=== PATIENT | male | born 1960 | race Caucasian/White ===

== ENCOUNTER 2020-07-26 09:40 | Outpatient (REF) | payer OTHER, SELFPAY | END 2020-07-26 09:41 | disposition home or self-care (01) | LOC: HO.LAB 09:40 | PROVIDERS: Visit Provider Internal Medicine | DX: Z20.828 Contact with and (suspected) exposure to other viral communicable diseases (principal) | CPT/HCPCS: 87635 ==

== ENCOUNTER 2024-05-08 22:57 | Emergency (ER) | payer BC, SELFPAY ==
[2024-05-08 23:04] VITALS: BP 160/72; PULSE 111; RESP 20; TEMP 37.1; O2SAT 99; BMI 26.6
--- NOTE | 2024-05-08 23:51 | ED.GENADULT ---
HPI - General Adult General Chief complaint: General Medical Stated complaint: Inflamed Prostate Time Seen by Provider: 05/08/24 23:51 History of Present Illness ED Provider: Rima PA narrative: The patient is a 63-year-old male who presents with acute pelvic or rectal pain that started this evening. He says that he had something like this a year ago and it was attributed to his prostate catheter at that time. He does not feel he can void on this occasion. No fever, sweats, chills. Related Data Previous Rx's ?Medication ?Instructions ?Recorded oxycodone 5 mg tablet 5 mg PO Q6H PRN pain #10 tabs 05/09/24 tamsulosin 0.4 mg capsule 0.4 mg PO BEDTIME #30 caps 05/09/24 Allergies Allergy/AdvReac Type Severity Reaction Status Date / Time No Known Allergies Allergy Verified 05/08/24 23:06 Review of Systems Review of Systems: Yes all other systems are reviewed and are negative [facility] Social History Social History Smoked in Last 30 Days: No Use of substances other than those prescribed or required for medical reasons: No Advance Directives: No Advance Directives Information Provided: Yes Do you have a plan to hurt others: No Plan Physical Exam ED Vital Signs: Vital Signs - 24 hr 05/08/24 23:04 05/09/24 02:50 05/09/24 03:35 Temperature 98.7 F 99.4 F 99.4 F Pulse Rate 111 H 110 H 98 Respiratory Rate 20 18 16 Blood Pressure 160/72 H 126/72 126/72 Pulse Oximetry 99 94 97 Oxygen Delivery Method Room Air Room Air Room Air BMI result Body Mass Index 26.6 Const Other: The patient is awake and alert, pleasant and cooperative. He looks quite uncomfortable. HENMT Other: Face is symmetrical, mucous membranes moist Eyes Other: Pupils are round equal, conjunctivae are clear Resp Effort & Inspection: normal respiratory effort Auscultation: clear to auscultation bilaterally Cardio Rate: regular rate Rhythm: regular rhythm Heart sounds: S1 normal heart sound present and S2 normal heart sound present GI Other: The abdomen is soft and nontender except in the suprapubic area where there is fullness and tenderness. Rectal exam showed normal rectal tone. There was no significant prostatic tenderness with digital examination. Skin Other: Skin is dry and unremarkable Neuro Other: The patient is awake and alert. He looks very uncomfortable. Face is symmetrical. Speech is clear. Moving extremities symmetrically. Seems grossly neurologically intact. Extrem Other: No peripheral edema Medications Administered Discontinued Medications Generic Name Dose Route Start Last Admin Trade Name Larry PRN Reason Stop Dose Admin Hydromorphone HCl 1 mg 05/08/24 23:54 05/09/24 00:06 Hydromorphone Hcl 1 Mg/Ml Syringe IVPUSH 05/08/24 23:55 1 mg ONCE ONE Administration Protocol Sodium Chloride 1,000 mls @ 999 mls/hr 05/08/24 23:45 05/09/24 00:55 Ns IV 05/09/24 00:45 Infused .Q1H1M BRIEN Infusion Ketorolac Tromethamine 10 mg 05/09/24 03:21 05/09/24 03:26 Ketorolac Tromethamine 15 Mg/Ml Vial IVPUSH 05/09/24 03:22 10 mg ONCE ONE Administration Lidocaine HCl 10 ml 05/09/24 01:03 05/09/24 01:22 Lidocaine Hcl 2 % Urojet 10 Ml Jel.Pf.David TOPICAL 05/09/24 01:04 10 ml ONCE ONE Administration Oxycodone HCl 5 mg 05/09/24 03:03 05/09/24 03:20 Oxycodone Hcl Immed Release 5 Mg Tablet PO 05/09/24 03:04 5 mg ONCE ONE Administration Tamsulosin HCl 0.4 mg 05/09/24 02:23 05/09/24 02:58 Tamsulosin Hcl 0.4 Mg Capsule PO 05/09/24 02:24 0.4 mg ONCE ONE Administration Medical Decision Making Medical Decision Making MDM Narrative: Patient is a 63-year-old male who presents with the acute pelvic discomfort and inability to void. Phone. A bladder scan revealed a bladder volume of 590 mL. He then tried to void and was unable to void. He was then given a urinary catheter with a large flow of urine. The urinalysis is unremarkable. His labs are unremarkable. He has a normal white count and differential. There is no suggestion of a significant infectious process. Given that the patient seemed to have some degree of discomfort out of proportion even after placement of the catheter and relief of his urinary retention I performed a digital rectal exam to ensure there was no prostatic tenderness possibly consistent with prostatitis. There was no significant prostate tenderness and I do not think this is a case of prostatitis. The patient will be discharged with a prescription for tamsulosin. The patient is also given a small number of oxycodone tablets. He says that he has been seen at the urology practice associated with [facility]. He is advised to contact his regular urology practice on Saturday morning. He was also given our on-call urologist as a backup. Lab Data 05/09/24 00:10 05/09/24 00:10 Labs: Lab Results 05/09/24 05/09/24 Range/Units 00:10 01:50 WBC 5.4 (4.8-10.8) X10*3/uL RBC 4.78 (4.60-5.80) X10*6/uL Hgb 15.2 (14.0-18.0) g/dl Hct 42.7 (42.0-52.0) % MCV 89.3 (80.0-98.0) fL MCH 31.8 (27.0-33.0) pg MCHC 35.6 (31.0-36.0) g/dl RDW 12.1 (11.0-16.0) % Plt Count 185 (160-400) X10*3/uL MPV 9.4 (9.4-12.4) fL Immature Gran % (Auto) 0.2 (0.0-0.4) % Neut % (Auto) 59.0 (45-73) % Lymph % (Auto) 26.0 (20-40) % [place] % (Auto) 12.4 H (2-11) % Eos % (Auto) 1.7 (0-4) % Baso % (Auto) 0.7 (0-2) % Lymph # (Auto) 1.4 (1.2-4.9) X10*3/uL [place] # (Auto) 0.7 (0.1-1.2) X10*3/uL Eos # (Auto) 0.1 (0.0-0.4) X10*3/uL Baso # (Auto) 0.0 (0.0-0.2) X10*3/uL Abs Immat Gran (auto) 0.01 (0.00-0.03) X10*3/uL Absolute Neuts (auto) 3.2 (2.0-8.3) x10*3/uL Absolute Nucleated RBC 0.000 (0.0-0.012) X10*3/uL Nucleated RBC % (auto) 0.0 (0.0-0.2) /100WBC Sodium 139 (135-145) mmol/L Potassium 3.7 (3.3-5.1) mmol/L Chloride 106 (96-108) mmol/L Carbon Dioxide 22 (22-29) mmol/L Anion Gap 15 (12-20) BUN 11 (9-16) mg/dL Creatinine 0.90 (0.5-1.4) mg/dL Estim Creat Clear Calc 80.5 Estimated GFR > 60 Random Glucose 270 H (60-115) mg/dL Calcium 9.5 (8.4-10.2) mg/dL Magnesium 2.1 (1.6-2.6) mg/dL Total Bilirubin 0.4 (0.0-1.0) mg/dL Direct Bilirubin 0.1 (0.0-0.5) mg/dL AST 24 (5-37) U/L ALT 22 (0-40) U/L Alkaline Phosphatase 95 (39-117) U/L C-Reactive Protein < 0.04 (< or = 0.50) mg/dL Total Protein 6.9 (6.5-8.0) g/dL Albumin 4.1 (3.5-5.0) g/dL Urine Color Yellow Urine Appearance Clear Urine pH 8.0 (5.0-9.0) Ur Specific [place] >= 1.030 H (1.005-1.025) Urine Protein Negative (Neg-Trace) mg/dL Urine Glucose (UA) >=1000 H (Negative) mg/dL Urine Ketones Negative (Negative) mg/dL Urine Blood Negative (Negative) Urine Nitrite Negative (Negative) Ur Leukocyte Esterase Negative (Negative) Urine RBC 0-2 (0-2) /HPF Urine WBC 0-5 (0-5) /HPF Ur Squamous Epith Cells 0-2 (0-2) /HPF Urine Bacteria None Seen (None Seen) Hyaline Casts 0-2 (0-2) /LPF Discharge Plan Discharge Clinical Impression: Acute urinary retention Patient Disposition: Home, Self-Care Instructions: Summers Catheter Placement and Care (ED) Additional Instructions: You were retaining urine because your prostate was pressure on your urethra, the tube which delivers urine outside of your body. You were given a catheter to allow the urine to flow. You have been started on a medication called tamsulosin to help reduce the pressure from the prostate. Please take this daily, usually at bedtime. Please contact your [facility] urologist on Saturday morning to make a follow up appointment to discuss this further and to make arrangements for your catheter. (if for any reason you are unable to get in touch with your [facility] urologist I have given you the name and number of a [facility] urologist, Dr. Arriaza) Return to the emergency room if significantly worse. Prescriptions: New tamsulosin 0.4 mg capsule 0.4 mg PO BEDTIME Qty: 30 0RF oxycodone 5 mg tablet 5 mg PO Q6H PRN (Reason: pain) Qty: 10 0RF Rx Instructions: Partial Fill upon patient request. Referrals: Melvin Arriaza MD [Physician] - (urinary retention) Stand Alone Forms: Work/School Release Interventions: ED Discharge Assessment Last Done: 05/09/24 03:35 Discharge Date/Time: 05/09/24 03:36 Print Language: Telugu
[2024-05-09] MEDS: HYDROmorphone HCl 1 MG/ML SYRINGE IVPUSH (00:06)
[2024-05-09] MEDS: 0.9 % Sodium Chloride 1,000 ML 999 ML IV (00:06)
[2024-05-09 00:15] LABS: Basophils Percent Auto 0.7 % (0-2); Eosinophils Absolute Auto 0.1 X10*3/uL (0.0-0.4); Eosinophils Percent Auto 1.7 % (0-4); Hematocrit 42.7 % (42.0-52.0); Hemoglobin 15.2 g/dl (14.0-18.0); Imm Gran Abs Auto 0.01 X10*3/uL (0.00-0.03); Imm Gran Pct Auto 0.2 % (0.0-0.4); Lymphocytes Absolute Auto 1.4 X10*3/uL (1.2-4.9); MANUAL DIFF FLAG NO; Mean Corpuscular HGB Conc 35.6 g/dl (31.0-36.0); Mean Corpuscular Hemoglobin 31.8 pg (27.0-33.0); Mean Corpuscular Volume 89.3 fL (80.0-98.0); Mean Platelet Volume 9.4 fL (9.4-12.4); Monocytes Absolute Auto 0.7 X10*3/uL (0.1-1.2); Monocytes Percent Auto 12.4 % (2-11); Neutrophils Absolute Auto 3.2 x10*3/uL (2.0-8.3); Platelet Count 185 X10*3/uL (160-400); Red Blood Count 4.78 X10*6/uL (4.60-5.80); Red Cell Distribution Width 12.1 % (11.0-16.0); White Blood Count 5.4 X10*3/uL (4.8-10.8)
[2024-05-09 00:41] LABS: Alanine Aminotransferase 22 U/L (0-40); Albumin Level 4.1 g/dL (3.5-5.0); Alkaline Phosphatase 95 U/L (39-117); Anion Gap 15 (12-20); Aspartate Amino Transferase 24 U/L (5-37); Bilirubin Direct 0.1 mg/dL (0.0-0.5); Bilirubin Total 0.4 mg/dL (0.0-1.0); Blood Urea Nitrogen 11 mg/dL (9-16); C Reactive Protein < 0.04 mg/dL (< or = 0.50); Calcium 9.5 mg/dL (8.4-10.2); Carbon Dioxide 22 mmol/L (22-29); Chloride 106 mmol/L (96-108); Glucose Random 270 mg/dL (60-115); Magnesium 2.1 mg/dL (1.6-2.6); Potassium 3.7 mmol/L (3.3-5.1); Sodium 139 mmol/L (135-145); Total Protein 6.9 g/dL (6.5-8.0)
[2024-05-09 00:50] LABS: Creatinine Clr Calc Pharmacy 80.5; Estimated Glomerular Filt Rate > 60
[2024-05-09] MEDS: Lidocaine HCl 2 % Urojet 10 ML JEL.PF.APP TOPICAL (01:22)
[2024-05-09 01:55] LABS: Appearance Urine Clear; Color Urine Yellow; Glucose Urine UA >=1000 mg/dL (Negative); Leukocyte Esterase Urine Negative (Negative); Nitrite Urine Negative (Negative); Specific Gravity - Urine >= 1.030 (1.005-1.025); UMIC TRIGGER UACC YES; Urine Blood Negative (Negative); Urine Ketones Negative (Negative); Urine Protein Negative (Neg-Trace)
[2024-05-09 02:00] LABS: Bacteria Urine None Seen (None Seen); Hyaline Casts Urine 0-2 /LPF (0-2); RBC Urine 0-2 /HPF (0-2); Squamous Epithelial Cell Urine 0-2 /HPF (0-2); WBC Urine 0-5 /HPF (0-5)
--- NOTE | 2024-05-09 02:19 | PC.NURSE ---
pt c/o that the pain is back, pt is moaning and groaning. Pt is very tensed, informed the doctor, that pt, was in pain
[2024-05-09 02:50] VITALS: BP 126/72; PULSE 110; RESP 18; TEMP 37.4; O2SAT 94
[2024-05-09] MEDS: Tamsulosin HCL 0.4 MG CAPSULE PO (02:58)
[2024-05-09] MEDS: oxyCODONE HCl Immed Release 5 MG TABLET PO (03:20)
[2024-05-09] MEDS: Ketorolac Tromethamine 15 MG/ML VIAL 10 MG IVPUSH (03:26)
[2024-05-09 03:35] VITALS: BP 126/72; PULSE 98; RESP 16; TEMP 37.4; O2SAT 97
== END 2024-05-09 03:36 | disposition home or self-care (01) ==
PROVIDERS: Emergency Provider Emergency Medicine
DX: R33.9 Retention of urine, unspecified (principal); R10.2 Pelvic and perineal pain
CPT/HCPCS: 36415; 51702; 51798; 80048; 80076; 81001; 83735; 85025; 86140; 96361; 96374; 96375; 99285; J1170; J1885

== ENCOUNTER 2024-05-10 09:13 | Emergency (ER) | payer BC, SELFPAY ==
[2024-05-10 09:24] VITALS: BP 131/71; PULSE 95; RESP 18; TEMP 35.9; O2SAT 97; BMI 26.2
--- NOTE | 2024-05-10 09:41 | ED_ITS ---
HPI - Male Genitourinary General Chief complaint: Urogenital-Male Stated complaint: urine catheter removal Time Seen by Provider: 05/10/24 09:23 Source: patient, family and japanese interpreter Mode of arrival: ambulatory Limitations: no limitations History of Present Illness ED Provider: DR. Larkin HPI Narrative: 63-year-old male was seen in the ED on 05/08 was diagnosed with urinary retention patient required Summers catheter placement and was instructed to follow-up with urologist, patient returned today to take the Summers catheter out, no abdominal pain, no nausea, no vomiting, no fever. Related Data Previous Rx's ?Medication ?Instructions ?Recorded oxycodone 5 mg tablet 5 mg PO Q6H PRN pain #10 tabs 05/09/24 tamsulosin 0.4 mg capsule 0.4 mg PO BEDTIME #30 caps 05/09/24 Allergies Allergy/AdvReac Type Severity Reaction Status Date / Time No Known Allergies Allergy Verified 05/10/24 09:26 Review of Systems Review of Systems: All other systems are reviewed and are negative Constitutional: Reports as per HPI and Reports no additional constitutional complaints Eyes: Reports as per HPI and Reports no additional eye complaints Reports system reviewed and no additional complaints, except as documented Cardiovascular: Reports as per HPI and Reports no additional cardiovascular complaints Respiratory: Reports as per HPI and Reports no additional respiratory complaints Gastrointestinal: Reports as per HPI and Reports no additional gastrointestinal complaints Genitourinary: Reports no additional female genitourinary complaints Musculoskeletal: Reports no additional musculoskeletal complaints Skin/Breast: Reports system reviewed and no additional complaints, except as docu Psychiatric: Reports no additional psychiatric complaints Endocrine: Reports no additional endocrine complaints Hematologic/Lymphatic: Reports no additional hematologic/lymphatic complaints Allergic/Immunologic: Reports no additional allergic/immunologic complaints Reports system reviewed and no additional complaints, except as documented and Reports Abnormal speech present [facility] Social History Social History Advance Directives: No Advance Directives Information Provided: No Physical Exam Vital Signs: Vital Signs: Last Vital Signs Temp 96.7 F L 05/10/24 09:24 Pulse 95 05/10/24 09:24 Resp 18 05/10/24 09:24 BP 131/71 05/10/24 09:24 Pulse Ox 97 05/10/24 09:24 O2 Del Method Room Air 05/10/24 09:24 BMI result Body Mass Index 26.2 Vital signs have been reviewed and appear to be correct. Blood pressure elevated. Heart rate normal. Respiratory rate normal. Temperature normal. Oxygen saturation normal. Appearance: Alert. Oriented X3. No acute distress. Head: Normal external exam. Normocephalic. Atraumatic. No Fritz signs noted. No raccoon eyes noted Eyes: PERRLA. EOMI. Conjunctiva and sclera normal. Eyelids normal. ENT: TM's Normal. Pharynx normal. Uvula midline. Moist mucous membranes. No trismus noted. No drooling noted. No muffled voice noted. Neck: Normal inspection. Neck supple. FROM. No adenopathy. Thyroid Normal. No meningeal signs. No neck mass noted. CVS: Normal heart rate and rhythm. Heart sound normal. No murmurs noted. Pulses normal throughout. Respiratory: No respiratory distress. Painless inspiration. Breath sounds normal. No wheezes/rales/rhonchi noted. Chest nontender. No accessory muscle usage noted or decreased air movement noted. Abdomen: Soft and nontender. Bowel sounds normal in all 4 quadrants. No distention noted. No organomegaly noted. No visible injury noted. exam: No scrotal swelling, Summers catheter in place and draining. Back: No CVA tenderness. Full range of motion noted. Skin: Skin warm and dry. Normal skin color. Normal skin turgor. No rashes/lesions/lacerations noted. Extremities: No lower extremity edema. Extremities exhibit normal range of motion. Extremities nontender. Neuro: Oriented X 3. Cranial nerve exam: II-XII are grossly intact No motor deficit. No sensory deficit. Reflexes normal. Course Reevaluation(s) Reevaluation #1: 63-year-old male came in for urinary retention require Summers catheter placement and leg bag patient was discharged to follow-up with urologist return after called his PCP who told him to come back and take it out. I explained to the patient a clinic see that the Summers catheter has been there for only 2 days, he supposed to see his urologist this week, and there is a possibility of urinary retention and being unable to take the Summers catheter out. Patient now agreed to leave it on and follow-up with the urologist. Time: 09:50 Medical Decision Making Differential Diagnosis Differential Diagnoses: The differential diagnosis associated with the presentation includes ( Urinary retention, Summers catheter complication.) Admission/Observation Consideration of admission/observation: Escalation of care including admission/observation considered Discharge Plan Discharge Clinical Impression: Summers catheter in place Patient Disposition: Home, Self-Care Instructions: Summers Catheter Placement and Care (ED) Additional Instructions: follow-up with your urologist for further assessment. Prescriptions: No Action tamsulosin 0.4 mg capsule 0.4 mg PO BEDTIME Qty: 30 0RF oxycodone 5 mg tablet 5 mg PO Q6H PRN (Reason: pain) Qty: 10 0RF Rx Instructions: Partial Fill upon patient request. Print Language: Ukrainian
[2024-05-10 10:22] VITALS: BP 131/71; PULSE 95; RESP 18; TEMP 35.9; O2SAT 97
== END 2024-05-10 10:22 | disposition home or self-care (01) ==
PROVIDERS: Emergency Provider Emergency Medicine; PCP Internal Medicine
DX: R33.9 Retention of urine, unspecified (principal)
CPT/HCPCS: 99282

== ENCOUNTER 2024-05-13 10:14 | Emergency (ER) | payer BC, SELFPAY ==
[2024-05-13 10:18] VITALS: BP 137/74; PULSE 99; RESP 19; TEMP 36.6; O2SAT 99; BMI 26.2
--- NOTE | 2024-05-13 10:33 | ED.MALEGU ---
HPI - Male Genitourinary General Chief complaint: Urogenital-Male Stated complaint: wants to remove catheter Time Seen by Provider: 05/13/24 10:33 Source: patient and family (patient's ) Mode of arrival: ambulatory Limitations: no limitations History of Present Illness ED Provider: Jeanette Cordon PA-C HPI Narrative: 63 year old male with PMH of urinary retention arrives to the ED for removal of his Amador catheter. Patient had Amador catheter placed on 05/08/2024 due to urinary retention and discomfort due to increased bladder volume. He has a urology appointment on Saturday. Patient wants catheter removed due to urine leaking out at the catheter insertion site. Related Data Previous Rx's ?Medication ?Instructions ?Recorded oxycodone 5 mg tablet 5 mg PO Q6H PRN pain #10 tabs 05/09/24 tamsulosin 0.4 mg capsule 0.4 mg PO BEDTIME #30 caps 05/09/24 Allergies Allergy/AdvReac Type Severity Reaction Status Date / Time No Known Allergies Allergy Verified 05/13/24 10:20 Review of Systems Constitutional: Constitutional: Reports no additional constitutional complaints, Denies chills, Denies fever(s) and Denies night sweats Eyes: Eyes: Reports no additional eye complaints, Denies blurry vision, Denies change in vision, Denies diplopia, Denies eye discharge, Denies loss of vision and Denies eye pain ENT: Denies dizziness Cardiovascular: Cardiovascular: Reports no additional cardiovascular complaints, Denies chest pain, Denies lightheadedness, Denies Loss of Consciousness and Denies dyspnea Respiratory: Respiratory: Reports no additional respiratory complaints and Denies dyspnea Gastrointestinal: Gastrointestinal: Reports no additional gastrointestinal complaints, Denies abdominal pain, Denies melena, Denies hematochezia, Denies change in bowel habits and Denies change in stool character Genitourinary: Genitourinary: Reports no additional male genitourinary complaints Comments: urine leaking around amador catheter Musculoskeletal: Musculoskeletal: Reports no additional musculoskeletal complaints, Denies numbness and Denies tingling Neurologic: Denies dizziness, Denies loss of vision, Denies numbness and Denies tingling Psychiatric: Psychiatric: Reports no additional psychiatric complaints Endocrine: Endocrine: Reports no additional endocrine complaints Hematologic/Lymphatic: Hematologic/Lymphatic: Reports no additional hematologic/lymphatic complaints Allergic/Immunologic: Allergic/Immunologic: Reports no additional allergic/immunologic complaints PMFSH Past Medical History Attestation statement: The following information was validated with the patient. (patient's validated all information) Source: old records reviewed, obtained from family (patent's provided additional history and confirmed the history provided by the patient.) and nursing notes reviewed Social History Social History Advance Directives: No Advance Directives Information Provided: Yes Physical Exam Vital Signs: Vital Signs: Last Vital Signs Temp 98 F 05/13/24 11:03 Pulse 99 05/13/24 11:03 Resp 19 05/13/24 11:03 BP 137/74 05/13/24 11:03 Pulse Ox 99 05/13/24 11:03 O2 Del Method Room Air 05/13/24 11:03 BMI result Body Mass Index 26.2 Const: General: cooperative, no acute distress, alert and awake Nutritional Appearance: well nourished Orientation/consciousness: patient oriented x3 Limitations: no limitations HEENT: Head: Yes normal to inspection and Yes atraumatic Ears: hearing grossly normal bilaterally and external ears normal General nose exam: Normal external nose present, no nasal discharge noted and no epistaxis Face and sinus: Yes normal facial exam, No abrasion and No laceration Mouth: Normal oral and palatal mucosa present, no drooling and no muffled voice Eyes: General: appearance normal, both eyes and all related structures Periorbital: periorbital findings normal Eyelids: Yes eyelids normal Conjunctivae: conjunctivae normal Pupils: Equal, round and reactive pupils present EOM: EOMs intact bilaterally Neck: Neck: Yes normal visual inspection, Yes full ROM and Yes no lymphadenopathy Chest: Chest palpation & inspection: normal inspection of the chest Resp: Effort & Inspection: normal respiratory effort and able to speak in complete sentences GI: Inspection: Yes normal to inspection : Other: amador catheter in place - actively draining Neuro: General: patient oriented x3 and moves all extremities Cranial nerves: Yes Equal, round and reactive pupils present Cognition (Neuro): normal cognition Extrem: General: Yes normal to inspection, Yes full ROM and Yes capillary refill normal Psych: Appearance: grossly normal Mental Status: mental status grossly normal Affect: normal affect Attitude: cooperative Thought process: Normal thought process present Thought content: Normal thought content present Insight: Good insight present (Psych) Medical Decision Making Medical Decision Making MDM Narrative: Patient is a 63 year old assigned male at with a history of recent urinary retention presenting to the emergency department today requesting amador catheter removal. Patient's physical exam was as noted in the physical exam portion of this note. I explained my physical exam findings to the patient and the patient's . I answered all questions asked by the patient and the patient's . I gave the patient the option between trialling removal of the Amador catheter or adjusting the current catheter to stop the surrounding leaking. Patient stated that he would rather the catheter be removed completely. I stressed to the patient that if he does not urinate in the next 6 hours after Amador removal, he must return to the ER for Amador replacement. Patient's catheter was removed without incident. Patient was able to urinate almost immediately after catheter removal. I stressed the importance of the patient taking his medication as directed (either prescribed or as the over the counter packaging recommends). I stressed the importance of the patient following up with his primary care provider and his urologist. I stressed the importance of the patient returning to the emergency department immediately if his symptoms were to worsen or if he were to develop any dizziness, shortness of breath, difficulty breathing, chest pain, blurry vision, loss of vision, nausea, vomiting, abdominal pain, fever, chills, back pain, or any other complaints. Patient and the patient's verbalized agreement and understanding with this treatment plan and discharge. Differential Diagnosis Differential Diagnoses: The differential diagnosis associated with the presentation includes Catheter evaluation Catheter removal Admission/Observation Consideration of admission/observation: Escalation of care including admission/observation considered Patient would have been admitted to the hospital had his clinical presentation warranted hospital admission. Independent Historian Clinical information obtained from an independent historian. History obtained from or confirmed by: Spouse (patient's provided additional history and confirmed the history provided by the patient.) Discharge Plan Discharge Clinical Impression: Encounter for Amador catheter removal Patient Disposition: Home, Self-Care Instructions: Amador Catheter Removal (DC) Additional Instructions: If you are unable to urinate over the next 6 hours, come back to the ER for amador catheter replacement. Follow up with your primary care provider and a urologist. Return to the emergency department immediately if your symptoms worsen or if you develop any dizziness, shortness of breath, difficulty breathing, chest pain, blurry vision, loss of vision, nausea, vomiting, abdominal pain, fever, chills, back pain, or any other complaints. Prescriptions: No Action tamsulosin 0.4 mg capsule 0.4 mg PO BEDTIME Qty: 30 0RF oxycodone 5 mg tablet 5 mg PO Q6H PRN (Reason: pain) Qty: 10 0RF Rx Instructions: Partial Fill upon patient request. Referrals: [facility] [place] [facility] [Provider Group] (Follow up with a urologist. ) Jose Zimmerman MD [Primary Care Provider] - Interventions: ED Discharge Assessment Last Done: 05/13/24 11:03 Discharge Date/Time: 05/13/24 11:03 Print Language: Persian
--- NOTE | 2024-05-13 10:56 | PC.NURSE ---
amador cath removed per provider verbal order, pt tolerated well - mild hematuria after removal, provider aware. pt and spouse educated on need to return to ED if pt goes 6hrs w/o urinating. verbalized understanding. pt to follow up outpt w urology on Saturday.
[2024-05-13 11:03] VITALS: BP 137/74; PULSE 99; RESP 19; TEMP 36.6; O2SAT 99
== END 2024-05-13 11:03 | disposition home or self-care (01) ==
PROVIDERS: Emergency Provider Emergency Medicine; PCP Internal Medicine
DX: R33.9 Retention of urine, unspecified (principal)
CPT/HCPCS: 99282

== ENCOUNTER 2024-05-15 17:19 | Emergency (ER) | payer BC, SELFPAY ==
[2024-05-15 17:54] VITALS: BP 121/88; PULSE 124; RESP 18; TEMP 36.9; O2SAT 98; BMI 26.2
--- NOTE | 2024-05-15 18:08 | ED.MALEGU ---
HPI - Male Genitourinary General Chief complaint: Urogenital-Male Stated complaint: ref by urologist, UTI w/ fever Time Seen by Provider: 05/16/24 02:38 History of Present Illness ED Provider: Rima PA Narrative: The patient is a 63-year-old male who came to the emergency room last week on May 08 and was found to be in acute urinary retention. He was given a urinary catheter. He did not seem to be infected and was not started on antibiotics. He was prescribed tamsulosin. He returned to the emergency room 2 days later on May 10 hoping to have the catheter removed but was told that the catheter should stay in place longer. He then returned to the emergency room 2 days ago on May 13 again requesting catheter removal. His catheter was removed. The patient says that he also followed up with the urology office and was told that he had a urine infection and was started on ciprofloxacin. The patient says he has had fevers despite taking the ciprofloxacin. He says he has had fevers up to 103. No back pain or flank pain. No vomiting. Related Data Previous Rx's ?Medication ?Instructions ?Recorded oxycodone 5 mg tablet 5 mg PO Q6H PRN pain #10 tabs 05/09/24 tamsulosin 0.4 mg capsule 0.4 mg PO BEDTIME #30 caps 05/09/24 cefpodoxime 200 mg tablet 200 mg PO BID 8 days #16 tabs 05/16/24 Allergies Allergy/AdvReac Type Severity Reaction Status Date / Time No Known Allergies Allergy Verified 05/15/24 18:00 Review of Systems Review of Systems: Yes all other systems are reviewed and are negative [facility] Social History Social History Smoked in Last 30 Days: No Use of substances other than those prescribed or required for medical reasons: No Advance Directives: No Advance Directives Information Provided: No Physical Exam Vital Signs: Vital Signs: Last Vital Signs Temp 98.1 F 05/16/24 06:01 Pulse 92 05/16/24 06:01 Resp 18 05/16/24 06:01 BP 126/72 05/16/24 06:01 Pulse Ox 98 05/16/24 06:01 O2 Del Method Room Air 05/16/24 06:01 BMI result Body Mass Index 26.2 Const: Other: The patient is a 63-year-old male who has a healthy and athletic appearance. He is awake and alert. Mental status is normal. He does not appear in discomfort or distress or seem toxic anyway. HEENT: Head: Yes normal to inspection Face and sinus: Yes normal facial exam Mouth: Normal oral and palatal mucosa present and moist mucous membranes Eyes: General: appearance normal, both eyes and all related structures Alignment and Position: alignment normal Periorbital: periorbital findings normal Eyelids: Yes eyelids normal Conjunctivae: conjunctivae normal Sclerae: sclerae normal EOM: EOMs intact bilaterally Neck: Neck: Yes full ROM and Yes no meningeal signs Resp: Effort & Inspection: normal respiratory effort Auscultation: clear to auscultation bilaterally Cardio: Rate: tachycardic Rhythm: regular rhythm Heart sounds: S1 normal heart sound present and S2 normal heart sound present GI: Other: Abdomen is flat, soft, nontender. : General: Yes no CVA tenderness Back/Spine/Pelvis: Back: no CVA tenderness Skin: Other: Dry and unremarkable Neuro: Other: Awake , alert, normal mental status, nontoxic, grossly neurologically intact. General: no meningeal signs Extrem: Other: No peripheral edema Course Course Course Narrative: This is an RME: Additional HPI, ROS, PE not included below will be deferred to primary provider. RME assessment and note performed by: Judi Diaz PA-C This is a 63-year-old male who presents emergency department with complaints Medications Administered Discontinued Medications Generic Name Dose Route Start Last Admin Trade Name Freq PRN Reason Stop Dose Admin Acetaminophen 975 mg 05/16/24 02:50 05/16/24 03:07 Acetaminophen 325 Mg Tablet PO 05/16/24 02:51 975 mg ONCE ONE Administration Sodium Chloride 1,000 mls @ 999 mls/hr 05/16/24 02:45 05/16/24 04:08 Ns IV 05/16/24 03:45 Infused .Q1H1M BRIEN Infusion Ceftriaxone Sodium 1 gm/ 50 mls @ 100 mls/hr 05/16/24 02:50 05/16/24 03:36 Sodium Chloride IV 05/16/24 03:19 Infused ONCE ONE Infusion Lactated Ringer's 1,000 mls @ 999 mls/hr 05/16/24 04:15 05/16/24 05:36 Lr IV 05/16/24 05:15 Infused .Q1H1M BRIEN Infusion Ibuprofen 400 mg 05/16/24 02:52 05/16/24 03:07 Ibuprofen 400 Mg Tablet PO 05/16/24 02:53 400 mg ONCE ONE Administration Medical Decision Making Medical Decision Making [facility] Narrative: The patient is a 63-year-old male who presents with a fever after having recently had a urinary catheter for the first time. He had the catheter placed about a week ago because of acute urinary retention. He had the catheter removed two days ago. He followed up with the urology yesterday and was placed on ciprofloxacin. ?I do not know on what basis the ciprofloxacin was recommended. My assumption is that a urinalysis had been done at the urology office that was potentially suggestive of a UTI. He has had fevers potentially as high as 103 at home despite the ciprofloxacin. Here he is tart, but otherwise does not appear significantly. He has no pain, no CVA, percussion tenderness, no urinary retention. Blood cultures and a urine culture were sent. His urine analysis today 20 to 50 cells. It is negative for leukocyte esterase and nitrites. The patient CBC is unremarkable. He has a white count of 12.4 with 78% neutrophils. His lactate is normal. His CRP is concerning the elevated, however at 26.55. My presumption is that the problem is urinary tract infection related to his recent urinary catheter. ?He currently does not have a catheter in place and he is not retaining urine. His post void residual was 51 mL. He was given 1 g of IV ceftriaxone. He was given 2 L of IV fluids. His tachycardia resolved. Here continued to look clinically well. ?I will recommend that he stopped the ciprofloxacin and will prescribe cefpodoxime instead. ?He should follow up with his PCP and with urology. He should return if worse. . Lab Data 05/15/24 18:51 05/15/24 18:44 Labs: Lab Results 05/15/24 05/15/24 05/15/24 Range/Units 18:44 18:51 23:48 WBC 12.4 H (4.8-10.8) X10*3/uL RBC 4.99 (4.60-5.80) X10*6/uL Hgb 15.7 (14.0-18.0) g/dl Hct 44.2 (42.0-52.0) % MCV 88.6 (80.0-98.0) fL MCH 31.5 (27.0-33.0) pg MCHC 35.5 (31.0-36.0) g/dl RDW 12.3 (11.0-16.0) % Plt Count 167 (160-400) X10*3/uL MPV 9.2 L (9.4-12.4) fL Immature Gran % (Auto) 0.3 (0.0-0.4) % Neut % (Auto) 78.0 H (45-73) % Lymph % (Auto) 9.3 L (20-40) % [place] % (Auto) 11.3 H (2-11) % Eos % (Auto) 0.6 (0-4) % Baso % (Auto) 0.5 (0-2) % Lymph # (Auto) 1.2 (1.2-4.9) X10*3/uL [place] # (Auto) 1.4 H (0.1-1.2) X10*3/uL Eos # (Auto) 0.1 (0.0-0.4) X10*3/uL Baso # (Auto) 0.1 (0.0-0.2) X10*3/uL Abs Immat Gran (auto) 0.04 H (0.00-0.03) X10*3/uL Absolute Neuts (auto) 9.7 H (2.0-8.3) x10*3/uL Absolute Nucleated RBC 0.000 (0.0-0.012) X10*3/uL Nucleated RBC % (auto) 0.0 (0.0-0.2) /100WBC Sodium 134 L (135-145) mmol/L Potassium 3.6 (3.3-5.1) mmol/L Chloride 101 (96-108) mmol/L Carbon Dioxide 23 (22-29) mmol/L Anion Gap 14 (12-20) BUN 7 L (9-16) mg/dL Creatinine 0.75 (0.5-1.4) mg/dL Estim Creat Clear Calc 96.7 Estimated GFR > 60 Random Glucose 142 H (60-115) mg/dL Lactic Acid 0.9 (0.5-2.0) mmol/L Calcium 9.7 (8.4-10.2) mg/dL Magnesium 2.0 (1.6-2.6) mg/dL Total Bilirubin 0.6 (0.0-1.0) mg/dL Direct Bilirubin 0.2 (0.0-0.5) mg/dL AST 13 (5-37) U/L ALT 13 (0-40) U/L Alkaline Phosphatase 75 (39-117) U/L Troponin I High Sens < 2.7 (<3.5-35.0) ng/L C-Reactive Protein 26.55 H (< or = 0.50) mg/dL Total Protein 7.4 (6.5-8.0) g/dL Albumin 4.0 (3.5-5.0) g/dL Lipase 11 (8-78) U/L Urine Color Yellow Urine Appearance Clear Urine pH 5.5 (5.0-9.0) Ur Specific [place] >= 1.030 H (1.005-1.025) Urine Protein 30 (1+) H (Neg-Trace) mg/dL Urine Glucose (UA) >=1000 H (Negative) mg/dL Urine Ketones 80 (Negative) mg/dL Urine Blood Moderate (2+) H (Negative) Urine Nitrite Negative (Negative) Ur Leukocyte Esterase Negative (Negative) Urine RBC 0-2 (0-2) /HPF Urine WBC 21-50 H (0-5) /HPF Ur Squamous Epith Cells 0-2 (0-2) /HPF Urine Bacteria None Seen (None Seen) Hyaline Casts 3-5 (0-2) /LPF Influenza Type A (PCR) NEGATIVE (Negative) Influenza Type B (PCR) NEGATIVE (Negative) RSV RNA Qual (PCR) NEGATIVE (Negative) SARS-CoV-2 RNA (RT-PCR) NEGATIVE (Negative) Discharge Plan Discharge Clinical Impression: Urinary tract infection Patient Disposition: Home, Self-Care Additional Instructions: You seem to have a urinary tract infection. Since you continued to have fevers despite the ciprofloxacin you have been taking I have recommended changing your antibiotic. You received an IV dose of an antibiotic called ceftriaxone in the emergency room today. I have sent an oral antibiotic to your pharmacy. This is cefpodoxime. 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 After that take the antibiotic 2 times a day, approximately every 12 hours. Please complete the entire course. Drink lot of fluids. Please follow up with the urology office and your regular doctor. If at any point you feel that you were doing significantly worse, especially if you have significant ongoing fevers or any nausea or vomiting, or if you just feel much worse, please return to the emergency room. Prescriptions: New cefpodoxime 200 mg tablet 200 mg PO BID 8 Days Qty: 16 0RF Rx Instructions: must administer with a meal/food No Action tamsulosin 0.4 mg capsule 0.4 mg PO BEDTIME Qty: 30 0RF oxycodone 5 mg tablet 5 mg PO Q6H PRN (Reason: pain) Qty: 10 0RF Rx Instructions: Partial Fill upon patient request. Referrals: Terence Mohamud MD [Physician] - (post catheter UTI) Jose Zimmerman MD [Primary Care Provider] - (urinary tract infection) Interventions: ED Discharge Assessment Last Done: 05/16/24 06:01 Discharge Date/Time: 05/16/24 06:02 Print Language: Kenyan
--- NOTE | 2024-05-15 18:09 | ECG_ITS ---
Test Reason : UROGENITAL Blood Pressure : / mmHG Vent. Rate : 112 BPM Atrial Rate : 112 BPM P-R Int : 140 ms QRS Dur : 064 ms QT Int : 312 ms P-R-T Axes : 056 023 028 degrees QTc Int : 425 ms Sinus tachycardia Otherwise normal ECG When compared with ECG of 14-OCT-2019 10:17, No significant change was found Referred By: Judi Diaz Electronically Signed By:MADONNA CORTES MD
[2024-05-15 18:57] LABS: MANUAL DIFF FLAG NO
[2024-05-15 19:00] LABS: Basophils Absolute Auto 0.1 X10*3/uL (0.0-0.2); Basophils Percent Auto 0.5 % (0-2); Eosinophils Absolute Auto 0.1 X10*3/uL (0.0-0.4); Eosinophils Percent Auto 0.6 % (0-4); Hematocrit 44.2 % (42.0-52.0); Hemoglobin 15.7 g/dl (14.0-18.0); Imm Gran Abs Auto 0.04 X10*3/uL (0.00-0.03); Imm Gran Pct Auto 0.3 % (0.0-0.4); Lymphocytes Absolute Auto 1.2 X10*3/uL (1.2-4.9); Lymphocytes Percent Auto 9.3 % (20-40); Mean Corpuscular HGB Conc 35.5 g/dl (31.0-36.0); Mean Corpuscular Hemoglobin 31.5 pg (27.0-33.0); Mean Corpuscular Volume 88.6 fL (80.0-98.0); Mean Platelet Volume 9.2 fL (9.4-12.4); Monocytes Absolute Auto 1.4 X10*3/uL (0.1-1.2); Monocytes Percent Auto 11.3 % (2-11); Neutrophils Absolute Auto 9.7 x10*3/uL (2.0-8.3); Platelet Count 167 X10*3/uL (160-400); Red Blood Count 4.99 X10*6/uL (4.60-5.80); Red Cell Distribution Width 12.3 % (11.0-16.0); White Blood Count 12.4 X10*3/uL (4.8-10.8)
[2024-05-15 19:06] LABS: Alanine Aminotransferase 13 U/L (0-40); Alkaline Phosphatase 75 U/L (39-117); Anion Gap 14 (12-20); Aspartate Amino Transferase 13 U/L (5-37); Bilirubin Direct 0.2 mg/dL (0.0-0.5); Bilirubin Total 0.6 mg/dL (0.0-1.0); Blood Urea Nitrogen 7 mg/dL (9-16); Calcium 9.7 mg/dL (8.4-10.2); Carbon Dioxide 23 mmol/L (22-29); Chloride 101 mmol/L (96-108); Creatinine Clr Calc Pharmacy 96.7; Estimated Glomerular Filt Rate > 60; Glucose Random 142 mg/dL (60-115); Lipase 11 U/L (8-78); Potassium 3.6 mmol/L (3.3-5.1); Sodium 134 mmol/L (135-145); Total Protein 7.4 g/dL (6.5-8.0)
[2024-05-15 19:09] LABS: Lactic Acid 0.9 mmol/L (0.5-2.0)
[2024-05-15 19:29] LABS: Troponin-I High Sensitivity < 2.7 ng/L (<3.5-35.0)
[2024-05-15 19:33] LABS: Influenza A PCR NEGATIVE (Negative); Influenza B PCR NEGATIVE (Negative); Resp Syncy Virus RNA Qual PCR NEGATIVE (Negative); SARS COV2 PCR INHOUSE NEGATIVE (Negative)
[2024-05-15 23:50] VITALS: BP 123/79; PULSE 114; RESP 18; TEMP 36.8; O2SAT 95
[2024-05-15 23:56] LABS: Appearance Urine Clear; Color Urine Yellow; Glucose Urine UA >=1000 mg/dL (Negative); Leukocyte Esterase Urine Negative (Negative); Nitrite Urine Negative (Negative); PH 5.5 (5.0-9.0); Specific Gravity - Urine >= 1.030 (1.005-1.025); UMIC TRIGGER UACC YES; Urine Blood Moderate (2+) (Negative); Urine Ketones 80 mg/dL (Negative); Urine Protein 30 (1+) mg/dL (Neg-Trace)
[2024-05-16 00:07] LABS: Bacteria Urine None Seen (None Seen); RBC Urine 0-2 /HPF (0-2); Squamous Epithelial Cell Urine 0-2 /HPF (0-2); UACC Culture Trigger YES; WBC Urine 21-50 /HPF (0-5)
[2024-05-16 00:29] VITALS: BP 129/77; PULSE 104; RESP 16; TEMP 36.9; O2SAT 98
[2024-05-16 02:23] VITALS: BP 132/70; PULSE 109; RESP 16; TEMP 36.9; O2SAT 97
[2024-05-16] MEDS: 0.9 % Sodium Chloride 1,000 ML 999 ML IV (03:03)
[2024-05-16] MEDS: Acetaminophen 325 MG TABLET 975 MG PO (03:07)
[2024-05-16] MEDS: Ibuprofen 400 MG TABLET PO (03:07)
[2024-05-16] MEDS: cefTRIAXone sodium 1 GM in 0.9 % Sodium Chloride 50 ML IV (03:07)
[2024-05-16 03:58] LABS: C Reactive Protein 26.55 mg/dL (< or = 0.50)
[2024-05-16] MEDS: Lactated Ringers 1,000 ML 999 ML IV (04:07)
[2024-05-16 05:04] VITALS: BP 131/66; PULSE 97; RESP 18; O2SAT 96
[2024-05-16 05:57] VITALS: BP 126/72; PULSE 92; RESP 18; TEMP 36.7; O2SAT 98
[2024-05-16 06:01] VITALS: BP 126/72; PULSE 92; RESP 18; TEMP 36.7; O2SAT 98
== END 2024-05-16 06:02 | disposition home or self-care (01) ==
PROVIDERS: Physician Assistant Medical; Emergency Provider Emergency Medicine; PCP Internal Medicine
DX: N39.0 Urinary tract infection, site not specified (principal)
CPT/HCPCS: 0241U; 51798; 80048; 80076; 81001; 83605; 83690; 83735; 84484; 85025; 86140; 87040; 87086; 93005; 96361; 96365; 99284; 99285; J0696; J7120

== ENCOUNTER → 2024-05-15 18:09 | Outpatient (BNV) | payer BC, SELFPAY | PROVIDERS: Emergency Provider Emergency Medicine; PCP Internal Medicine; Visit Provider Internal Medicine Cardiovascular Disease | DX: R00.0 Tachycardia, unspecified (principal) | CPT/HCPCS: 93010 ==